=== PATIENT | female | born 1950 | race Caucasian/White ===

== ENCOUNTER 2022-01-24 09:40 | Emergency (ER) | payer MEDICARE, OTHER ==
[2022-01-24 10:35] LABS: EOSINOPHIL 1.4 % (0-7); HCT 37.3 % (37.0-47.0); HGB 12.3 g/dl (12.5-16.0); LYMPHOCYTE 21.1 % (15-48); MCH 32.3 pg (25.0-31.0); MCV 97.9 fL (78.0-100.0); MONOCYTE 8.3 % (0-12); MPV 10.2 fL (6.0-9.5); NRBC 0; PLT 163 K/uL (150-400); RBC 3.81 M/uL (4.20-5.40); RDW 13.1 % (11.5-14.0); WBC 5.1 K/uL (4.0-10.5)
[2022-01-24 11:01] LABS: ALBUMIN 4.2 g/dL (3.4-5.0); BILIRUBIN - TOTAL 0.6 mg/dL (0.2-1.0); BUN/CREAT RATIO (CALC) 19.1 RATIO; CREATININE 1.1 mg/dL (0.51-0.95); GLOBULIN (CALCULATION) 2.4 g/dL; POTASSIUM 4.3 mmol/L (3.5-5.1); TOTAL PROTEIN 6.6 g/dL (6.4-8.2)
[2022-01-24 12:43] LABS: BILIRUBIN NEGATIVE (NEGATIVE); BLOOD NEGATIVE Ery/uL (NEGATIVE); CLARITY CLEAR (CLEAR); COLOR YELLOW (YELLOW); GLUCOSE (U) NORMAL (NORMAL); LEUKOCYTES NEGATIVE Leu/uL (NEGATIVE); NITRITE NEGATIVE (NEGATIVE); PROTEIN NEGATIVE (NEGATIVE); UROBILINOGEN 0.2 mg/dL (0.2-1.0)
[2022-01-24] MEDS ORDERED: LINZESS72 MCG PO (15:47)
== END 2022-01-24 16:35 | disposition home or self-care (01) ==
LOC: FER 09:40
PROVIDERS: Emergency Medicine
DX: K58.1 Irritable bowel syndrome with constipation (principal); K21.9 Gastro-esophageal reflux disease without esophagitis; I10 Essential (primary) hypertension; F03.90 Unspecified dementia, unspecified severity, without behavioral disturbance, psychotic disturbance, mood disturbance, and anxiety; Z79.899 Other long term (current) drug therapy
CPT/HCPCS: 36415; 80053; 81003; 82150; 83690; 84145; 85025; J7030; Q9967